=== PATIENT | male | born 1945 ===

== ENCOUNTER 2024-12-14 18:23 | Inpatient (IN) | payer MEDICARE, MEDICAID ==
[~2024-12-14] VITALS: Ht 180.3 cm; Wt 86.4 kg
[2024-12-14 21:00] LABS: BASOPHILS % (AUTO) 0.2 % (0.0-2.0); EOSINOPHILS % (AUTO) 1.9 % (1.0-6.0); HEMATOCRIT 36.8 % (41-53); HEMOGLOBIN 12.2 g/dL (13.5-17.5); LYMPHOCYTES # (AUTO) 1.4 K/uL (1.0-4.8); LYMPHOCYTES % (AUTO) 20.3 % (22.0-44.0); MEAN CORPUSCULAR HEMOGLOBIN 30.3 pg (26.0-34.0); MEAN CORPUSCULAR HGB CONC 33.1 G/dL (31.0-37.0); MEAN CORPUSCULAR VOLUME 92 fL (80-100); MONOCYTES # (AUTO) 0.6 K/uL (0.1-1.0); MONOCYTES % (AUTO) 8.4 % (2.0-9.0); NEUTROPHILS # (AUTO) 4.8 K/uL (1.8-7.7); NEUTROPHILS % (AUTO) 69.2 % (40.0-70.0); PLATELET COUNT (AUTO) 211 K/uL (150-450); RED BLOOD CELL COUNT(AUTO) 4.02 MIL/uL (4.50-5.90); RED CELL DISTRIBUTION WIDTH 12.9 % (11.5-14.5)
[2024-12-14 21:05] LABS: ANION GAP 5 mmol/L (8-16); CALCIUM, TOTAL 8.8 mg/dL (8.8-10.5); CARBON DIOXIDE 28 mmol/L (22-29); CHLORIDE 107 mmol/L (98-107); CREATININE 1.05 mg/dL (0.60-1.30); GLOMERULAR FILTR. RATE CALC > 60 mL/min (>60); GLUCOSE,RANDOM 93 mg/dL (70-110); POTASSIUM 3.6 mmol/L (3.5-5.1); SODIUM SERUM 140 mmol/L (136-145); UREA NITROGEN, BLOOD 18 mg/dL (7-18)
[2024-12-14 21:07] LABS: ALCOHOL, BLOOD (SERUM) < 3 mg/dL (0-10)
[2024-12-14] MEDS ORDERED: ZOLPIDEM TARTRATE 10 MG TABLET PO PRN (22:15)
[2024-12-15] MEDS: LORazepam 2 MG/ML VIAL IM ONE (00:30)
[2024-12-15] MEDS: DiphenhydrAMINE HCL 50 MG/ML VIAL IM ONE (00:30)
[2024-12-15] MEDS: HALOPERIDOL LACTATE 5 MG/ML VIAL IM ONE (00:30)
[2024-12-15 00:51] LABS: COVID AG,FIA SOURCE NASAL SWAB
[2024-12-15 01:10] LABS: SARS-COV2 (COVID) ANTIGEN,FIA Negative (Negative)
[2024-12-15] MEDS ORDERED: ATOR40TA28 PO (10:37)
[2024-12-15] MEDS ORDERED: MELA5TAB40 PO (10:37)
[2024-12-15] MEDS ORDERED: LIDO700A15 TP (10:37)
[2024-12-15] MEDS ORDERED: DOCU-412 PO (10:37)
[2024-12-15] MEDS ORDERED: CYAN500T56 PO (10:37)
[2024-12-15] MEDS ORDERED: METO-325 PO (10:37)
[2024-12-15] MEDS ORDERED: ISOS30TA92 PO (10:37)
[2024-12-15] MEDS ORDERED: ASPI-1444 PO (10:37)
[2024-12-15] MEDS ORDERED: FAMO20 PO (10:40)
[2024-12-15] MEDS ORDERED: QUET25TA PO (10:40)
[2024-12-15] MEDS ORDERED: SENN8.6T90 PO (10:40)
[2024-12-15] MEDS ORDERED: ONDANSETRON HCL 4 MG/2 ML VIAL IVP PRN (19:15)
[2024-12-15] MEDS ORDERED: MAGNESIUM HYDROXIDE SUSPENSION 30 ML UDCUP PO PRN (19:15)
[2024-12-15] MEDS ORDERED: IPRATROPIUM BROMIDE 0.5 MG/2.5 ML NEB SOLUTION NEB PRN (19:15)
[2024-12-15] MEDS ORDERED: DOCUSATE SODIUM 250 MG CAPSULE PO PRN (19:15)
[2024-12-15] MEDS ORDERED: SENNOSIDES 8.6 MG TABLET PO PRN (19:15)
[2024-12-15] MEDS ORDERED: MELATONIN 5 MG TABLET PO PRN (19:15)
[2024-12-15] MEDS ORDERED: ALBUTEROL SULFATE 2.5 MG/0.5 ML NEB SOLUTION NEB PRN (19:15)
[2024-12-15] MEDS ORDERED: ACETAMINOPHEN 325 MG TABLET PO PRN (19:15)
[2024-12-15] MEDS ORDERED: ZOLPIDEM TARTRATE 5 MG TABLET PO PRN (19:15)
[2024-12-15] MEDS: FAMOTIDINE 20 MG TABLET PO SCH (20:38)
[2024-12-15] MEDS: ATORVASTATIN CALCIUM 40 MG TABLET PO SCH (20:38)
[2024-12-15] MEDS: QUEtiapine FUMARATE 25 MG TABLET PO SCH (20:38)
[2024-12-15 23:41] VITALS: BP 136/65; PULSE 93; RESP 18; TEMP 98.2; O2SAT 98
[2024-12-16] MEDS: HEPARIN SODIUM,PORCINE 5,000 UNITS/ML VIAL SQ SCH (00:05)
[2024-12-16] MEDS: HALOPERIDOL 5 MG TABLET PO PRN (00:53)
[2024-12-16 03:45] VITALS: BP 113/59; PULSE 84; RESP 18; TEMP 98; O2SAT 97
[2024-12-16 07:19] VITALS: BP 142/82; PULSE 89; RESP 18; TEMP 98; O2SAT 96
[2024-12-16] MEDS: METOPROLOL SUCCINATE 50 MG ER TABLET PO SCH (08:26)
[2024-12-16] MEDS: CYANOCOBALAMIN 500 MCG TABLET PO SCH (08:27)
[2024-12-16] MEDS: ASPIRIN 81 MG DR TABLET PO SCH (08:27)
[2024-12-16] MEDS: ISOSORBIDE MONONITRATE 30 MG ER TABLET PO SCH (08:29)
[2024-12-16 11:36] VITALS: BP 118/64; PULSE 84; RESP 18; TEMP 98; O2SAT 95
[2024-12-16 13:43] LABS: APPEARANCE,URINE CLEAR (CLEAR); BILIRUBIN,URINE NEGATIVE (NEGATIVE); COLOR,URINE YELLOW (YELLOW); GLUCOSE, URINE (UA) NEGATIVE (NEGATIVE); KETONES,URINE NEGATIVE (NEGATIVE); LEUKOCYTE ESTERASE ,URINE NEGATIVE (NEGATIVE); NITRATE,URINE NEGATIVE (NEGATIVE); OCCULT BLOOD,URINE TRACE (NEGATIVE); PH,URINE 5.5 (5.0-8.0); PH,URINE DRUG SCREEN 5.5 (5.0-8.0); PROTEIN,URINE NEGATIVE (NEGATIVE); SPECIFIC GRAVITIY, URINE 1.021 (1.003-1.030); UROBILINOGEN,URINE <=1.0 mg/dL (<=1.0)
[2024-12-16 13:48] LABS: ALCOHOL, URINE DRUG SCREEN NEGATIVE (NEGATIVE); AMPHET/METH SCREEN,URINE NEGATIVE (NEGATIVE); BARBITURATE SCREEN, URINE NEGATIVE (NEGATIVE); BENZODIAZEPINES SCREEN,URINE NEGATIVE (NEGATIVE); CANNABINOID SCREEN,URINE NEGATIVE (NEGATIVE); COCAINE SCREEN,URINE NEGATIVE (NEGATIVE); METHADONE SCREEN, URINE NEGATIVE (NEGATIVE); OPIATE SCREEN,URINE NEGATIVE (NEGATIVE); PHENCYCLIDINE SCREEN,URINE NEGATIVE (NEGATIVE)
[2024-12-16 13:56] LABS: BACTERIA,URINE None Seen /HPF (None Seen); RBC,URINE 0-2 /HPF (0-2); WBC,URINE None Seen /HPF (0-5)
[2024-12-16] MEDS: LORazepam 2 MG TABLET PO PRN (17:27)
[2024-12-16 17:40] VITALS: BP 126/66; PULSE 82; RESP 18; TEMP 98; O2SAT 97
[2024-12-16 19:49] VITALS: BP 119/78; PULSE 124; RESP 21; TEMP 102.4; O2SAT 96
[2024-12-16] MEDS ORDERED: SODIUM CHLORIDE 0.9% 250 ML IV ONE (20:36)
[2024-12-16] MEDS: ACETAMINOPHEN 650 MG/ISO-OSM 65 ML IV PRN (20:41)
[2024-12-16] MEDS: AMIODARONE HCL 150 MG in DEXTROSE 5%-WATER 97 ML IV ONE (20:59)
[2024-12-16] MEDS: QUEtiapine FUMARATE 25 MG TABLET PO SCH (21:00)
[2024-12-16] MEDS: AMIODARONE HCL 360 MG in DEXTROSE 5%-WATER 242.8 ML IV ONE (21:14)
[2024-12-17] VITALS (10 sets, daily range): BP systolic 105–132; BP diastolic 41–93; PULSE 67–94; RESP 17–19; TEMP 98–98.8; O2SAT 95–99
[2024-12-17] MEDS: AMIODARONE HCL 540 MG in DEXTROSE 5%-WATER 250 ML IV ONE (03:21)
[2024-12-17 07:13] LABS: BASOPHILS % (AUTO) 0.1 % (0.0-2.0); EOSINOPHILS % (AUTO) 0.8 % (1.0-6.0); HEMATOCRIT 41.2 % (41-53); HEMOGLOBIN 13.7 g/dL (13.5-17.5); LYMPHOCYTES # (AUTO) 1.5 K/uL (1.0-4.8); LYMPHOCYTES % (AUTO) 13.7 % (22.0-44.0); MEAN CORPUSCULAR HEMOGLOBIN 30.3 pg (26.0-34.0); MEAN CORPUSCULAR HGB CONC 33.3 G/dL (31.0-37.0); MEAN CORPUSCULAR VOLUME 91 fL (80-100); MONOCYTES # (AUTO) 1.5 K/uL (0.1-1.0); MONOCYTES % (AUTO) 13.6 % (2.0-9.0); NEUTROPHILS # (AUTO) 7.9 K/uL (1.8-7.7); NEUTROPHILS % (AUTO) 71.8 % (40.0-70.0); PLATELET COUNT (AUTO) 185 K/uL (150-450); RED BLOOD CELL COUNT(AUTO) 4.53 MIL/uL (4.50-5.90); WHITE BLOOD COUNT (AUTO) 11.1 K/uL (4.5-11.0)
[2024-12-17 07:25] LABS: B-TYPE NATRIURETIC PEPTIDE 441 pg/mL (0-100)
[2024-12-17 07:44] LABS: ANION GAP 6 mmol/L (8-16); CALCIUM, TOTAL 9.2 mg/dL (8.8-10.5); CARBON DIOXIDE 30 mmol/L (22-29); CHLORIDE 103 mmol/L (98-107); CREATININE 1.17 mg/dL (0.60-1.30); GLOMERULAR FILTR. RATE CALC 60 mL/min (>60); GLUCOSE,RANDOM 97 mg/dL (70-110); POTASSIUM 3.7 mmol/L (3.5-5.1); SODIUM SERUM 139 mmol/L (136-145); TROPONIN I-HIGH SENSITIVITY 17 ng/L (<76); UREA NITROGEN, BLOOD 18 mg/dL (7-18)
[2024-12-17] MEDS: METOPROLOL SUCCINATE 25 MG ER TABLET PO SCH (09:51)
[2024-12-17] MEDS ORDERED: SCOPOLAMINE HYDROBROMIDE 1 MG/72 HOUR PATCH TD SCH (13:30)
[2024-12-17] MEDS: SODIUM CHLORIDE 0.9% 1,000 ML IV ONE (15:10)
[2024-12-17] MEDS: BISACODYL 10 MG RECTAL RECTAL SUPPOSITORY PR PRN (16:30)
[2024-12-17] MEDS ORDERED: AMIODARONE HCL 750 MG in DEXTROSE 5%-WATER 485 ML IV SCH (20:30)
[2024-12-17] MEDS: AMIODARONE HCL 150 MG in DEXTROSE 5%-WATER 97 ML IV ONE (22:32)
[2024-12-17] MEDS: AMIODARONE HCL 360 MG in DEXTROSE 5%-WATER 242.8 ML IV ONE (22:41)
[2024-12-18 04:17] VITALS: BP 134/82; PULSE 82; RESP 18; TEMP 98.6; O2SAT 97
[2024-12-18] MEDS: AMIODARONE HCL 540 MG in DEXTROSE 5%-WATER 250 ML IV ONE (04:17)
[2024-12-18 08:21] VITALS: BP 133/61; PULSE 60; RESP 17; TEMP 98.8; O2SAT 97
[2024-12-18] MEDS: AMIODARONE HCL 200 MG TABLET PO SCH (08:36)
[2024-12-18] MEDS ORDERED: METOPROLOL SUCCINATE 50 MG ER TABLET PO SCH (09:00)
[2024-12-18 11:51] VITALS: BP 119/58; PULSE 67; RESP 18; TEMP 98.4; O2SAT 95
[2024-12-18 15:31] VITALS: BP 126/62; PULSE 80; RESP 18; TEMP 98.8; O2SAT 96
[2024-12-18 20:18] VITALS: BP 140/89; PULSE 78; RESP 18; TEMP 98.7; O2SAT 96
[2024-12-18] MEDS ORDERED: AMIODARONE HCL 750 MG in DEXTROSE 5%-WATER 485 ML IV SCH (22:00)
[2024-12-19 00:27] VITALS: BP 107/65; PULSE 78; RESP 19; TEMP 98.2; O2SAT 97
[2024-12-19 04:07] VITALS: BP 115/79; PULSE 87; RESP 18; TEMP 98.4; O2SAT 93
[2024-12-19 08:35] VITALS: BP 118/67; PULSE 73; RESP 18; TEMP 97.5; O2SAT 95
[2024-12-19] MEDS ORDERED: ATOR40TA71 PO (13:34)
[2024-12-19] MEDS ORDERED: ASPI-1444 PO (13:34)
[2024-12-19] MEDS ORDERED: QUET25TA36 PO (13:34)
[2024-12-19] MEDS ORDERED: CYAN500T56 PO (13:34)
[2024-12-19] MEDS ORDERED: AMIO200 PO (13:34)
[2024-12-19] MEDS ORDERED: METO25XL PO (13:34)
[2024-12-19] MEDS ORDERED: MELA5TAB40 PO (13:34)
[2024-12-19 15:51] VITALS: BP 113/61; PULSE 69; RESP 18; TEMP 98.4; O2SAT 94
[2024-12-19] MEDS: QUEtiapine FUMARATE 25 MG TABLET PO SCH (16:07)
[2024-12-23 16:03] LABS: CANDIDA AURIS PCR,SURVEILLANCE Not Detected C(t) (Not Detectd)
== END 2024-12-19 18:30 | DRG 74 ==
LOC: EMS 18:23 → EDH 12-15 19:04 → 5S 12-15 23:05 → 6S 12-19 06:43
PROVIDERS: ADMIT Hospitalist; ATTEND Hospitalist
DX: G90.89 Other disorders of autonomic nervous system (principal); G93.40 Encephalopathy, unspecified; F03.918 Unspecified dementia, unspecified severity, with other behavioral disturbance; F03.911 Unspecified dementia, unspecified severity, with agitation; F03.93 Unspecified dementia, unspecified severity, with mood disturbance; F03.92 Unspecified dementia, unspecified severity, with psychotic disturbance; I48.0 Paroxysmal atrial fibrillation; I12.9 Hypertensive chronic kidney disease with stage 1 through stage 4 chronic kidney disease, or unspecified chronic kidney disease; Z20.822 Contact with and (suspected) exposure to COVID-19; R62.7 Adult failure to thrive; T43.595A Adverse effect of other antipsychotics and neuroleptics, initial encounter; K21.9 Gastro-esophageal reflux disease without esophagitis; N18.9 Chronic kidney disease, unspecified; F43.21 Adjustment disorder with depressed mood; M10.9 Gout, unspecified; E78.00 Pure hypercholesterolemia, unspecified; F20.9 Schizophrenia, unspecified; J44.9 Chronic obstructive pulmonary disease, unspecified; R29.6 Repeated falls; Z78.1 Physical restraint status; Z91.199 Patient's noncompliance with other medical treatment and regimen due to unspecified reason; Y92.89 Other specified places as the place of occurrence of the external cause
CPT/HCPCS: 70450; 71045; 80048; 80307; 81001; 83880; 84443; 84484; 85025; 87040; 87081; 87481; 92610; 93005; 93306; 97167; 97535; 99285; G0480; J0131; J0282; J1200; J1630; J1644; J2060; J7030; J7050; J7060; 36415-L1; 36415-TC